=== PATIENT | female | born 1970 | race Caucasian/White ===

== ENCOUNTER → 2025-02-23 | Day surgery (SDC) | payer OTHER | END | disposition home or self-care (01) | LOC: FMAMMOTONE 08:24 | PROVIDERS: ATTEND Student in an Organized Health Care Education/Training Program | PROC: 0H9U3ZX Drainage of Left Breast, Percutaneous Approach, Diagnostic (ICD-10-PCS; principal; 2025-02-23) | DX: D05.02 Lobular carcinoma in situ of left breast (principal); N60.32 Fibrosclerosis of left breast | CPT/HCPCS: 19081; 76098-TC-FY; 87899; 88305-TC; A4648 ==